=== PATIENT | male | born 1975 | race American Indian/Alaskan Native ===

== ENCOUNTER 2019-05-09 16:12 | Emergency (ER) | payer SELFPAY ==
--- NOTE | 2019-05-09 16:25 | Emergency Department Report ---
Blank Doc - Documentation Documentation: 43-year-old male that presents with chest pain and SOB. This initial assessment/diagnostic orders/clinical plan/treatment(s) is/are subject to change based on patient's health status, clinical progression and re- assessment by fellow clinical providers in the ED. Further treatment and workup at subsequent clinical providers discretion. Patient/guardians urged not to elope from the ED as their condition may be serious if not clinically assessed and managed. Initial orders include: 1- Patient sent to [facility] for further evaluation and treatment 2- labs 3- EKG 4- CXR
[2019-05-09 16:53] LABS: Hematocrit 50.5 % (35.5-45.6); Hemoglobin 16.9 gm/dl (11.8-15.2); Mean Corpuscular HGB Conc 34 % (32-34); Mean Corpuscular Volume 99 fl (84-94); Platelet Count 225 K/mm3 (140-440); Red Blood Count 5.12 M/mm3 (3.65-5.03); Red Cell Distribution Width 13.5 % (13.2-15.2)
[2019-05-09 17:02] LABS: INR 0.95 (0.87-1.13); Partial Thromboplastin Time 26.5 Sec. (24.2-36.6)
--- NOTE | 2019-05-09 17:09 | XRay Report ---
CHEST PA AND LATERAL VIEWS INDICATION: Chest Pain. COMPARISON: None. FINDINGS: Support devices: None. Heart: Within normal limits. Lungs/Pleura: No acute pulmonary or pleural findings. There is mild scarring in the mid right lung. IMPRESSION: 1. No acute findings. Signer Name: Joseph Shirley MD Signed: 05/09/2019 5:05 PM Workstation Name: [id number]
[2019-05-09 17:17] LABS: BUN/Creatinine Ratio 12; Blood Urea Nitrogen 14 mg/dL (9-20); Calcium 9.4 mg/dL (8.4-10.2); Hemolysis Index 36
[2019-05-09 18:25] LABS: Basophils % (Manual) 0 % (0.0-1.8); Platelet Estimate Consistent w Auto; Poikilocytosis Few; Total Cells Counted 100
[2019-05-09] MEDS ORDERED: TORADOL IV ONE (19:54)
[2019-05-09] MEDS ORDERED: DUONEB *Not for PRN Use IH ONE (19:54)
[2019-05-09] MEDS ORDERED: SOLU-Medrol IV ONE (19:54)
[2019-05-09] MEDS ORDERED: LEVAQUIN PO ONE (22:09)
--- NOTE | 2019-05-09 22:14 | Emergency Department Report ---
- General Chief Complaint: Chest Pain Stated Complaint: CHEST PAIN Time Seen by Provider: 05/09/19 16:24 Source: patient, EMS Mode of arrival: Wheelchair Limitations: No Limitations - History of Present Illness Initial Comments: Patient is a 43-year-old -[place] male with a history of asthma and chronic tobacco abuse presents to the ED with complaint of acute onset persis tent nasal and sinus congestion, cough productive of white phlegm, pleuritic chest pain, sore throat, diffuse body aches and pains with wheezing or shortness of breath for the last 1 week, worse in the last 2 days. Patient denies dizziness, fever, chills, nausea, vomiting, abdominal pain, back pain, neck pain, change in vision, diarrhea or sore throat. Patient states that he has been taking [id number] medication with no relief. MD Complaint: cough, sore throat, rhinorrhea, nasal congestion, sinus pain, other (pleuritic chest wall pain) -: Sudden Severity: severe Severity scale (0 -10): 7 Quality: sharp, aching Consistency: constant Improves With: nothing Worsens With: other (Tobacco smoking) Context: sick contacts Associated Symptoms: denies other symptoms, myalgias, headache, rhinorrhea, nasal congestion, sore throat, cough, chest pain, shortness of breath. denies: fever, chills, diaphoresis, stiff neck, abdominal pain, nausea, vomiting, diarrhea, dysuria, rash, confusion, right sweats, weight loss, epistaxis, hoarseness Treatments Prior to Arrival: none - Related Data Previous Rx's Medication Instructions Recorded Last Taken Type Albuterol Sulfate [Proventil Hfa] 1 - 2 puff IH Q4H PRN #1 hfa.aer.ad 05/09/19 Unknown Rx Benzonatate [Tessalon Perles] 100 mg PO Q8HR #30 capsule 05/09/19 Unknown Rx Cetirizine HCl [Zyrtec 10mg tab] 10 mg PO DAILY #30 tablet 05/09/19 Unknown Rx Prednisone [predniSONE 10 mg 10 mg PO .TAPER #21 tab.ds.pk 05/09/19 Unknown Rx (6-Day Pack, 21 Tabs)] amLODIPine [Norvasc] 10 mg PO DAILY #30 tab 05/09/19 Unknown Rx levoFLOXacin [Levaquin TAB] 500 mg PO QDAY #10 tablet 05/09/19 Unknown Rx Allergies Allergy/AdvReac Type Severity Reaction Status Date / Time No Known Allergies Allergy Unverified 05/09/19 16:15 ED Review of Systems ROS: Stated complaint: CHEST PAIN Other details as noted in HPI Constitutional: denies: chills, fever Eyes: denies: eye pain, eye discharge, vision change ENT: throat pain, congestion, other. denies: ear pain Respiratory: cough, shortness of breath, wheezing. denies: SOB with exertion, SOB at rest Cardiovascular: denies: chest pain, palpitations Endocrine: no symptoms reported Gastrointestinal: denies: abdominal pain, nausea, vomiting, diarrhea, constipation, hematemesis Genitourinary: denies: urgency, dysuria Musculoskeletal: arthralgia, myalgia. denies: back pain, joint swelling Skin: denies: rash, lesions Neurological: headache. denies: weakness, paresthesias Psychiatric: denies: anxiety, depression Hematological/Lymphatic: denies: easy bleeding, easy bruising ED Past Medical Hx - Past Medical History Previous Medical History?: Yes Hx Asthma: Yes - Surgical History Past Surgical History?: No - Social History Smoking Status: Current Every Day Smoker Substance Use Type: Alcohol - Medications Home Medications: Home Medications Medication Instructions Recorded Confirmed Last Taken Type Albuterol Sulfate [Proventil Hfa] 1 - 2 puff IH Q4H PRN #1 hfa.aer.ad 05/09/19 Unknown Rx Benzonatate [Tessalon Perles] 100 mg PO Q8HR #30 capsule 05/09/19 Unknown Rx Cetirizine HCl [Zyrtec 10mg tab] 10 mg PO DAILY #30 tablet 05/09/19 Unknown Rx Prednisone [predniSONE 10 mg 10 mg PO .TAPER #21 tab.ds.pk 05/09/19 Unknown Rx (6-Day Pack, 21 Tabs)] amLODIPine [Norvasc] 10 mg PO DAILY #30 tab 05/09/19 Unknown Rx levoFLOXacin [Levaquin TAB] 500 mg PO QDAY #10 tablet 05/09/19 Unknown Rx ED Physical Exam - General Limitations: No Limitations General appearance: alert, in no apparent distress - Head Head exam: Present: atraumatic, normocephalic, normal inspection - Eye Eye exam: Present: normal appearance, PERRL, EOMI. Absent: scleral icterus, conjunctival injection, nystagmus, periorbital swelling, periorbital tenderness Pupils: Present: normal accommodation - ENT ENT exam: Present: normal orophraynx, mucous membranes moist, TM's normal bilaterally, normal external ear exam, other (grossly congested nasal passages; palpable frontal sinus tenderness) - Neck Neck exam: Present: normal inspection, full ROM. Absent: tenderness, meningismus, lymphadenopathy - Respiratory Respiratory exam: Present: normal lung sounds bilaterally, wheezes (mildly diffuse coarse wheezes throughout), chest wall tenderness. Absent: respiratory distress, rales, rhonchi, accessory muscle use, decreased breath sounds, prolonged expiratory - Cardiovascular Cardiovascular Exam: Present: normal rhythm, tachycardia, normal heart sounds. Absent: systolic murmur, diastolic murmur, rubs, gallop - GI/Abdominal GI/Abdominal exam: Present: soft, normal bowel sounds. Absent: tenderness, guarding, rebound, hyperactive bowel sounds, organomegaly, mass - Rectal Rectal exam: Present: deferred - Extremities Exam Extremities exam: Present: normal inspection, full ROM, normal capillary refill - Back Exam Back exam: Present: normal inspection, full ROM. Absent: tenderness, CVA tenderness (R), CVA tenderness (L), muscle spasm, paraspinal tenderness - Neurological Exam Neurological exam: Present: alert, oriented X3, CN II-XII intact, normal gait, reflexes normal - Psychiatric Psychiatric exam: Present: normal affect, normal mood - Skin Skin exam: Present: warm, dry, intact, normal color. Absent: rash ED Course Vital Signs 05/09/19 16:25 Temperature 98.6 F Pulse Rate 108 H Respiratory 20 Rate Blood Pressure 184/126 Blood Pressure 184/126 [Right] O2 Sat by Pulse 100 Oximetry - Reevaluation(s) Reevaluation #1: 05/09/19 22:19 This 43-year-old -[place] male with a history of asthma and chronic tobacco abuse presented to the ED complained of nasal and sinus congestion, dry cough with wheezing and shortness of breath and pleuritic chest pain for the last 1 week, worse in the last 2 days. In the ED, patient is alert and oriented 3, hypertensive, tachycardic and afebrile with audible wheezes. Chest x-ray shows no acute cardiopulmonary abnormalities. EKG shows sinus tachycardia with a ventricular rate of [address] or T-wave abnormalities or pathological Q waves. Lab test results were reviewed and are all nonactionable including the initial troponin and 2 hour troponin levels. Patient was treated in the ED with DuoNeb, Solu-Medrol and also given pain medications. On reevaluation, patient vital signs improved significantly and tachycardia resolved. Patient's wheezing also resolved and patient stated that he was feeling much better. Patient was discharged home on medications and was referred to [facility] for further evaluation and to establish care. Patient was advised to return to the ED immediately if symptoms get worse. ED Medical Decision Making - Lab Data Result diagrams: 05/09/19 16:36 05/09/19 16:36 - EKG Data EKG shows normal: sinus rhythm Rate: tachycardia - Radiology Data Radiology results: report reviewed, image reviewed Chest x-ray shows no acute cardiopulmonary abnormalities. - Medical Decision Making This 43-year-old -[place] male with a history of asthma and chronic tobacco abuse presented to the ED complained of nasal and sinus congestion, dry cough with wheezing and shortness of breath and pleuritic chest pain for the last 1 week, worse in the last 2 days. In the ED, patient is alert and oriented 3, hypertensive, tachycardic and afebrile with audible wheezes. Chest x-ray shows no acute cardiopulmonary abnormalities. EKG shows sinus tachycardia with a ventricular rate of [address] or T-wave abnormalities or pathological Q waves. Lab test results were reviewed and are all nonactionable including the initial troponin and 2 hour troponin levels. Patient was treated in the ED with DuoNeb, Solu-Medrol and also given pain medications. On reevaluation, patient vital signs improved significantly and tachycardia resolved. Patient's wheezing also resolved and patient stated that he was feeling much better. Patient was discharged home on medications and was referred to [facility] for further evaluation and to establish care. Patient was advised to return to the ED immediately if symptoms get worse. - Differential Diagnosis Pneumonia; dyspnea, ACS; Acute URI; acute asthmatic bronchitis Critical care attestation.: If time is entered above; I have spent that time in minutes in the direct care of this critically ill patient, excluding procedure time. ED Disposition Clinical Impression: Acute asthmatic bronchitis, Acute upper respiratory infection, Shortness of breath, Uncontrolled stage 2 hypertension Disposition: DC-01 TO HOME OR SELFCARE Is pt being admited?: No Does the pt Need Aspirin: No Condition: Stable Instructions: Acute Bronchitis (ED), Asthma (ED), Upper Respiratory Infection (ED), Hypertension (ED) Additional Instructions: Take medications with food, drink plenty of fluids and follow up with your primary care physician at [facility] in 7-10 days for reevaluation. Return to the ED immediately if symptoms get worse. Prescriptions: levoFLOXacin [Levaquin TAB] 500 mg PO QDAY #10 tablet amLODIPine [Norvasc] 10 mg PO DAILY #30 tab Prednisone [predniSONE 10 mg (6-Day Pack, 21 Tabs)] 10 mg PO .TAPER #21 tab.ds.pk Albuterol Sulfate [Proventil Hfa] 1 - 2 puff IH Q4H PRN #1 hfa.aer.ad PRN Reason: Dyspnea Benzonatate [Tessalon Perles] 100 mg PO Q8HR #30 capsule Cetirizine HCl [Zyrtec 10mg tab] 10 mg PO DAILY #30 tablet Referrals: [facility] [Outside] - 3-5 Days Time of Disposition: 22:30 Print Language: LUXEMBOURGISH
[2019-05-09 22:31] VITALS: BP 163/103
== END 2019-05-09 22:44 | disposition home or self-care (01) ==
LOC: ED 16:12
DX: J45.909 Unspecified asthma, uncomplicated (principal); J06.9 Acute upper respiratory infection, unspecified; I10 Essential (primary) hypertension; F17.200 Nicotine dependence, unspecified, uncomplicated; Z79.899 Other long term (current) drug therapy
CPT/HCPCS: 36415; 71046; 80048; 84484; 85007; 85025; 85610; 85730; 93005; 93010; 96374; 96375; 99285; J1885; J2930

== ENCOUNTER 2021-07-24 19:28 | Emergency (ER) | payer SELFPAY ==
[2021-07-24] MEDS ORDERED: PANTOPRAZOLE 40 MG TAB PO ONE (20:00)
[2021-07-24] MEDS ORDERED: ACETAMINOPHEN 325 MG TAB PO ONE (20:00)
--- NOTE | 2021-07-24 20:00 | Emergency Department Report ---
ED General Adult HPI - General Chief complaint: Chest Pain Stated complaint: CHEST PAIN PUI?: No Time Seen by Provider: 07/24/21 19:49 Source: patient, RN notes reviewed, old records reviewed Mode of arrival: Ambulatory Limitations: No Limitations - History of Present Illness Initial comments: The patient is a 46-year-old gentleman. He is not known to myself previously. He has a history of hypertension, tobacco use, and obesity. He presents to the ER with a complaint of chest pain. The chest pain is central. It does not radiate to the back arms or neck. There is no vomiting or diaphoresis. There is no shortness of breath. There is no leg pain or leg swelling. Patient denies travel, surgery, immobilization, DVT/PE risk factors. He denies Covid symptoms. He currently denies headache, neck pain, abdominal pain, vomiting, diaphoresis. He reports a rectal hemorrhoid, and intermittent bloody stool. This is now resolved. He denies urinary symptoms. Uncertain if there is a family history of CAD. No recent cardiac risk ratification for this particular patient himself. -: Gradual Location: chest Radiation: non-radiation Severity scale (0 -10): 3 Consistency: intermittent Improves with: none Worsens with: none - Related Data Previous Rx's Medication Instructions Recorded Last Taken Type Albuterol Sulfate [Proventil Hfa] 1 - 2 puff IH Q4H PRN #1 hfa.aer.ad 05/09/19 Unknown Rx amLODIPine 10 mg PO DAILY #30 tab 05/09/19 Unknown Rx Aspirin 325 mg PO QDAY #30 tablet 07/24/21 Unknown Rx amLODIPine 10 mg PO DAILY #30 tab 07/24/21 Unknown Rx Allergies Allergy/AdvReac Type Severity Reaction Status Date / Time No Known Allergies Allergy Unverified 05/09/19 16:15 ED Review of Systems ROS: Stated complaint: CHEST PAIN Other details as noted in HPI Constitutional: denies: fever Eyes: denies: eye discharge ENT: denies: epistaxis Respiratory: denies: wheezing Cardiovascular: chest pain Gastrointestinal: hematochezia. denies: abdominal pain, nausea, vomiting, melena Genitourinary: denies: dysuria Musculoskeletal: denies: back pain Neurological: denies: weakness Hematological/Lymphatic: denies: easy bleeding ED Past Medical Hx - Past Medical History Hx Asthma: Yes - Social History Smoking Status: Current Every Day Smoker Substance Use Type: Alcohol - Medications Home Medications: Home Medications Medication Instructions Recorded Confirmed Last Taken Type Albuterol Sulfate [Proventil Hfa] 1 - 2 puff IH Q4H PRN #1 hfa.aer.ad 05/09/19 Unknown Rx amLODIPine 10 mg PO DAILY #30 tab 05/09/19 Unknown Rx Aspirin 325 mg PO QDAY #30 tablet 07/24/21 Unknown Rx amLODIPine 10 mg PO DAILY #30 tab 07/24/21 Unknown Rx ED Physical Exam - General Limitations: No Limitations General appearance: alert, in no apparent distress - Head Head exam: Present: atraumatic, normocephalic - Eye Eye exam: Present: normal appearance, EOMI. Absent: nystagmus - ENT ENT exam: Present: normal exam, normal orophraynx, mucous membranes moist - Neck Neck exam: Present: normal inspection, full ROM. Absent: tenderness, menin gismus - Respiratory Respiratory exam: Present: normal lung sounds bilaterally, chest wall tenderness. Absent: respiratory distress, wheezes, rales, rhonchi, stridor - Cardiovascular Cardiovascular Exam: Present: regular rate, normal rhythm, normal heart sounds. Absent: bradycardia, tachycardia, irregular rhythm, systolic murmur, diastolic murmur, rubs, gallop - GI/Abdominal GI/Abdominal exam: Present: soft. Absent: distended, tenderness, guarding, rebound, rigid, pulsatile mass - Rectal Rectal exam: Present: normal inspection, heme (-) stool, hemorrhoids, other (Chaperoned by Apurva Chandler). Absent: black stool, bloody stool - Extremities Exam Extremities exam: Present: normal inspection, full ROM, other (2+ pulses noted in the bilateral upper and lower extremities. There is no palpable cord. negative Homans sign. Muscular compartments are soft. The pelvis is stable.). Absent: pedal edema, calf tenderness - Back Exam Back exam: Present: normal inspection, full ROM. Absent: tenderness, CVA tenderness (R), CVA tenderness (L), paraspinal tenderness, vertebral tenderness - Neurological Exam Neurological exam: Present: alert, oriented X3, normal gait, other (No facial droop. Tongue midline. Extraocular movements intact bilaterally. Facial sensation intact to light touch in V1, V2, V3 distribution bilaterally. 5 and a 5 strength in 4 extremities. Sensation intact to light touch in 4 extremities.). Absent: motor sensory deficit - Psychiatric Psychiatric exam: Present: normal affect, normal mood - Skin Skin exam: Present: warm, dry, intact, normal color. Absent: rash ED Course Vital Signs 07/24/21 07/24/21 07/24/21 19:36 20:45 21:01 Temperature 98.1 F Pulse Rate 97 H 92 H 94 H Respiratory 20 14 22 Rate Blood Pressure 186/96 186/96 Blood Pressure 180/112 [Right] O2 Sat by Pulse 97 98 98 Oximetry 07/24/21 21:15 Temperature Pulse Rate 83 Respiratory 17 Rate Blood Pressure 186/96 Blood Pressure [Right] O2 Sat by Pulse 98 Oximetry - Pulse Oximetry Interpretation Digit-Finger Initial Pulse Oximetry Readin O2 Sat by Pulse Oximetry: 98 Actions Taken: none ED Medical Decision Making - Lab Data Result diagrams: 07/24/21 Unknown 07/24/21 Unknown Vital Signs 07/24/21 07/24/21 07/24/21 19:36 20:45 21:01 Temperature 98.1 F Pulse Rate 97 H 92 H 94 H Respiratory 20 14 22 Rate Blood Pressure 186/96 186/96 Blood Pressure 180/112 [Right] O2 Sat by Pulse 97 98 98 Oximetry 07/24/21 21:15 Temperature Pulse Rate 83 Respiratory 17 Rate Blood Pressure 186/96 Blood Pressure [Right] O2 Sat by Pulse 98 Oximetry Lab Results 07/24/21 07/24/21 07/24/21 Range/Units Unknown Unknown Unknown WBC 5.6 (4.5-11.0) K/mm3 RBC 4.90 (3.65-5.03) M/mm3 Hgb 15.7 H (11.8-15.2) gm/dl Hct 48.5 H (35.5-45.6) % MCV 99 H (84-94) fl MCH 32 (28-32) pg MCHC 32 (32-34) % RDW 13.7 (13.2-15.2) % Plt Count 239 (140-440) K/mm3 Lymph % (Auto) 26.6 (13.4-35.0) % [place] % (Auto) 11.4 H (0.0-7.3) % Eos % (Auto) 2.1 (0.0-4.3) % Baso % (Auto) 0.7 (0.0-1.8) % Lymph # (Auto) 1.5 (1.2-5.4) K/mm3 [place] # (Auto) 0.6 (0.0-0.8) K/mm3 Eos # (Auto) 0.1 (0.0-0.4) K/mm3 Baso # (Auto) 0.0 (0.0-0.1) K/mm3 Seg Neutrophils % 59.2 (40.0-70.0) % Seg Neutrophils # 3.3 (1.8-7.7) K/mm3 PT 12.6 (12.2-14.9) Sec. INR 0.85 L (0.87-1.13) APTT 28.0 (24.2-36.6) Sec. Sodium 142 (137-145) mmol/L Potassium 4.1 (3.6-5.0) mmol/L Chloride 102.2 (98-107) mmol/L Carbon Dioxide 27 (22-30) mmol/L Anion Gap 17 mmol/L BUN 11 (9-20) mg/dL Creatinine 0.9 (0.8-1.3) mg/dL Estimated GFR > 60 ml/min BUN/Creatinine Ratio 12 % Glucose 134 H (75-100) mg/dL Calcium 8.9 (8.4-10.2) mg/dL Total Bilirubin 0.30 (0.1-1.2) mg/dL AST 28 (5-40) units/L ALT 41 (7-56) units/L Alkaline Phosphatase 90 (35-129) units/L Troponin T < 0.010 (0.00-0.029) ng/mL Total Protein 7.6 (6.3-8.2) g/dL Albumin 4.1 (3.9-5) g/dL Albumin/Globulin Ratio 1.2 % - EKG Data -: EKG Interpreted by Pa EKG shows normal: sinus rhythm Rate: normal - EKG Data 07/24/21 22:04 EKG #1 is performed at 19: 33 Sinus rhythm, 93 bpm. Normal axis, normal P wave axis. Poor R wave progression. Left ventricular hypertrophy. Numerous T wave abnormalities inferior and lateral leads. When compared to prior EKG, T wave inversions in the lateral leads are new. Poor R wave progression in V2 is chronic. ST abnormalities inferior leads appear to be chronic, although more pronounced than when compared to prior EKG. - Radiology Data Radiology results: pending, report reviewed, image reviewed CHEST 2 VIEWS INDICATION / CLINICAL INFORMATION: Chest Pain. FINDINGS: SUPPORT DEVICES: None. HEART / MEDIASTINUM: No significant abnormality. LUNGS / PLEURA: No significant pulmonary or pleural abnormality. No pneumothorax. ADDITIONAL FINDINGS: No significant additional findings. IMPRESSION: 1. No acute findings. Signer Name: Pankaj Terry MD Signed: 07/24/2021 7:36 PM Workstation Name: [id number] - Medical Decision Making Differential diagnosis, including but not limited to: GERD, gastritis, hiatal hernia, pneumonia, costochondritis, acute coronary syndrome Assessment and plan: 46-year-old gentleman, who was afebrile, with reassuring vital signs with exception of chronic hypertension, who is not currently tachycardic, tachypneic or hypoxic, who denies DVT and PE risk factors, who is low risk by Wells criteria, and PERC negative, presenting with atypical reproducible chest wall pain, abnormal EKG with nonspecific changes, likely related to left ventricular hypertrophy, moderate risk for major adverse cardiac event as per heart score. Rectal examination shows no blood, only external hemorrhoid. Laboratory studies nonactionable. Patient presents as awake, alert, oriented, sober, of sound mind, exhibits decision-making capacity. Have recommended admission to the medical service for cardiac risk ratification. The patient is agreeable to admission, but he states that he lives in an apartment "with other people", reports that he needs to leave to hide and secure valuables, and make appropriate arrangements. He states that he will return to the emergency room right away. Therefore, he will be discharged AGAINST MEDICAL ADVICE. Risks of leaving, including , disability, paralysis, loss of quality of life are discussed with the patient, who is able to articulate these risks in his own words, and articulates understanding. However, he endorses that he will return to the emergency room right away. Critical care attestation.: If time is entered above; I have spent that time in minutes in the direct care of this critically ill patient, excluding procedure time. ED Disposition Clinical Impression: Acute chest pain, Elevated blood pressure reading Disposition: LEFT AGAINST MEDICAL ADVICE Is pt being admited?: No Does the pt Need Aspirin: No Condition: Undetermined Instructions: Chest Pain (ED), Hypertension, Adult, [id number], Angina Additional Instructions: As we discussed, you have left the hospital/emergency room AGAINST MEDICAL ADVICE. By leaving, you risked , disability, paralysis, permanent loss of quality of life. The ER is open 24 hours a day, 7 days a week. It never closes. Please return to the emergency room right away if and when you change your mind. If you decide not to return to the emergency room, please follow-up with the listed physician referrals as soon as possible. Referrals: PRIMARY CARE, [Primary Care Provider] - 3-5 Days [facility] [Provider Group] - 3-5 Days [facility] - 3-5 Days [facility] [Provider Group] - 3-5 Days Heart Score - HEART Score History: Slightly suspicious EKG: Non-specific Age: 45-65 Risk factors: > 3 risk factors or hx of atherosclerotic disease Troponin: < normal limit HEART Score: 4 - EKG Read Time Time EKG Completed: 19:33 EKG Read Time: 19:33 - Critical Actions Critical Actions: 4-6 pts:12-16.6% risk of adverse cardiac event. Should be admitted
--- NOTE | 2021-07-24 20:40 | XRay Report ---
CHEST 2 VIEWS INDICATION / CLINICAL INFORMATION: Chest Pain. FINDINGS: SUPPORT DEVICES: None. HEART / MEDIASTINUM: No significant abnormality. LUNGS / PLEURA: No significant pulmonary or pleural abnormality. No pneumothorax. ADDITIONAL FINDINGS: No significant additional findings. IMPRESSION: 1. No acute findings. Signer Name: Pankaj Terry MD Signed: 07/24/2021 8:36 PM Workstation Name: [id number]
[2021-07-24 20:44] LABS: Basophils % (Auto) 0.7 % (0.0-1.8); Eosinophils # (Auto) 0.1 K/mm3 (0.0-0.4); Eosinophils % (Auto) 2.1 % (0.0-4.3); Hematocrit 48.5 % (35.5-45.6); Hemoglobin 15.7 gm/dl (11.8-15.2); Lymphocytes # (Auto) 1.5 K/mm3 (1.2-5.4); Lymphocytes % (Auto) 26.6 % (13.4-35.0); Mean Corpuscular HGB Conc 32 % (32-34); Mean Corpuscular Volume 99 fl (84-94); Monocytes # (Auto) 0.6 K/mm3 (0.0-0.8); Monocytes % (Auto) 11.4 % (0.0-7.3); Platelet Count 239 K/mm3 (140-440); Red Cell Distribution Width 13.7 % (13.2-15.2)
[2021-07-24 21:01] VITALS: BP 186/96
[2021-07-24 21:08] LABS: Alanine Aminotransferase 41 units/L (7-56); Albumin 4.1 g/dL (3.9-5); BUN/Creatinine Ratio 12; Blood Urea Nitrogen 11 mg/dL (9-20); Calcium 8.9 mg/dL (8.4-10.2); Hemolysis Index 11
[2021-07-24 21:15] LABS: INR 0.85 (0.87-1.13)
[2021-07-24] MEDS ORDERED: ASPIRIN 81 MG TAB CHEW PO ONE (22:01)
[2021-07-24] MEDS ORDERED: amLODIPine 5 MG TAB PO ONE (22:01)
[2021-07-25] MEDS ORDERED: MORPHINE 2 MG/1 ML INJ IV PRN (02:37)
[2021-07-25] MEDS ORDERED: ONDANSETRON 4 MG/2 ML INJ IV PRN (02:37)
[2021-07-25] MEDS ORDERED: MORPHINE 4 MG/1 ML INJ IV PRN ×2 (02:37)
[2021-07-25] MEDS ORDERED: traMADol 50 MG TAB PO PRN (02:37)
[2021-07-25] MEDS ORDERED: NITROGLYCERIN 0.4 MG TAB SUBL SL PRN (02:37)
[2021-07-25] MEDS ORDERED: MAGNESIUM HYDROXIDE (MOM) ORAL LIQD UDC PO PRN (02:37)
[2021-07-25] MEDS ORDERED: ACETAMINOPHEN 325 MG TAB PO PRN (02:37)
[2021-07-25 04:03] LABS: Basophils % (Auto) 0.6 % (0.0-1.8); Eosinophils # (Auto) 0.1 K/mm3 (0.0-0.4); Hematocrit 49.7 % (35.5-45.6); Hemoglobin 16.1 gm/dl (11.8-15.2); Lymphocytes # (Auto) 2.3 K/mm3 (1.2-5.4); Lymphocytes % (Auto) 33.2 % (13.4-35.0); Mean Corpuscular HGB Conc 32 % (32-34); Mean Corpuscular Volume 101 fl (84-94); Monocytes # (Auto) 0.9 K/mm3 (0.0-0.8); Monocytes % (Auto) 13.6 % (0.0-7.3); Platelet Count 250 K/mm3 (140-440); Red Blood Count 4.94 M/mm3 (3.65-5.03); Red Cell Distribution Width 13.6 % (13.2-15.2)
[2021-07-25 04:54] LABS: BUN/Creatinine Ratio 15; Blood Urea Nitrogen 15 mg/dL (9-20); Calcium 9.4 mg/dL (8.4-10.2); Hemolysis Index 7
[2021-07-26] MEDS ORDERED: ASPIRIN EC 325 MG TAB PO SCH (10:00)
== END 2021-07-24 22:20 | disposition left against medical advice (07) ==
LOC: ED 19:28
DX: R07.9 Chest pain, unspecified (principal); R03.0 Elevated blood-pressure reading, without diagnosis of hypertension; I10 Essential (primary) hypertension; E66.9 Obesity, unspecified; J45.909 Unspecified asthma, uncomplicated; F17.200 Nicotine dependence, unspecified, uncomplicated
CPT/HCPCS: 36415; 71046; 80048; 80053; 84484; 85025; 85610; 85730; 93005; 99284

== ENCOUNTER 2021-07-25 00:47 | Inpatient (IN) | payer SELFPAY ==
--- NOTE | 2021-07-25 02:34 | Emergency Department Report ---
ED Chest Pain HPI - General Chief Complaint: Chest Pain Stated Complaint: CHEST PAIN Time Seen by Provider: 07/25/21 02:19 Source: patient Mode of arrival: Ambulatory Limitations: No Limitations - History of Present Illness Initial Comments: 46-year-old male, history of asthma, hypertension, presents to ED for admission for chest pain. Patient was seen earlier this evening by my colleague who wanted to admit the patient. Patient reported he needed to go home and take care of some things prior to staying in the hospital overnight. Patient reports he has been having substernal chest pain, intermittent, over the last few weeks. Patient reports some shortness of breath, but believes this is due to his asthma. He denies any nausea, vomiting, diaphoresis, leg pain or swelling, cough or fever. Patient reports tobacco use, denies any drug use. Unknown family history of cardiovascular disease. MD Complaint: chest pain -: week(s) (3) Pain Location: substernal Pain Radiation: none Severity: moderate Severity scale (0 -10): 0 Quality: tightness Consistency: intermittent Improves With: nothing Worsens With: nothing re: dyspnea. denies: nausea, vomting, diaphoresis Other Symptoms: denies: cough, fever, leg swelling - Related Data Previous Rx's Medication Instructions Recorded Last Taken Type Albuterol Sulfate [Proventil Hfa] 1 - 2 puff IH Q4H PRN #1 hfa.aer.ad 05/09/19 Unknown Rx amLODIPine 10 mg PO DAILY #30 tab 05/09/19 Unknown Rx Aspirin 325 mg PO QDAY #30 tablet 07/24/21 Unknown Rx amLODIPine 10 mg PO DAILY #30 tab 07/24/21 Unknown Rx Allergies Allergy/AdvReac Type Severity Reaction Status Date / Time No Known Allergies Allergy Unverified 05/09/19 16:15 Heart Score - HEART Score History: Slightly suspicious EKG: Non-specific Age: 45-65 Risk factors: > 3 risk factors or hx of atherosclerotic disease Troponin: < normal limit HEART Score: 4 - EKG Read Time Time EKG Completed: 02:14 EKG Read Time: 02:25 ED Review of Systems ROS: Stated complaint: CHEST PAIN Other details as noted in HPI Comment: All other systems reviewed and negative Respiratory: shortness of breath Cardiovascular: chest pain Gastrointestinal: denies: nausea, vomiting Musculoskeletal: other (Denies leg pain or swelling) ED Past Medical Hx - Past Medical History Hx Asthma: Yes - Social History Smoking Status: Current Every Day Smoker Substance Use Type: Alcohol - Medications Home Medications: Home Medications Medication Instructions Recorded Confirmed Last Taken Type Albuterol Sulfate [Proventil Hfa] 1 - 2 puff IH Q4H PRN #1 hfa.aer.ad 05/09/19 Unknown Rx amLODIPine 10 mg PO DAILY #30 tab 05/09/19 Unknown Rx Aspirin 325 mg PO QDAY #30 tablet 07/24/21 Unknown Rx amLODIPine 10 mg PO DAILY #30 tab 07/24/21 Unknown Rx ED Physical Exam - General Limitations: No Limitations General appearance: alert, in no apparent distress, obese - Head Head exam: Present: atraumatic, normocephalic - Eye Eye exam: Present: normal appearance, EOMI - ENT ENT exam: Present: mucous membranes moist - Neck Neck exam: Present: normal inspection - Respiratory Respiratory exam: Present: normal lung sounds bilaterally. Absent: respiratory distress - Cardiovascular Cardiovascular Exam: Present: regular rate, normal rhythm - GI/Abdominal GI/Abdominal exam: Present: soft. Absent: distended, tenderness - Extremities Exam Extremities exam: Present: normal inspection. Absent: pedal edema, calf tenderness - Neurological Exam Neurological exam: Present: alert, oriented X3 - Psychiatric Psychiatric exam: Present: normal affect, normal mood - Skin Skin exam: Present: warm, dry, intact, normal color ED Course Vital Signs 07/25/21 07/25/21 07/25/21 01:05 01:56 02:43 Temperature 98.2 F Pulse Rate 89 94 H Respiratory 20 18 17 Rate Blood Pressure 191/107 170/96 [Right] O2 Sat by Pulse 99 99 98 Oximetry ED Medical Decision Making - EKG Data -: EKG Interpreted by Mi EKG shows normal: sinus rhythm, axis, intervals, QRS complexes Rate: normal - EKG Data Interpretation: other (Lateral T wave inversions present) Critical care attestation.: If time is entered above; I have spent that time in minutes in the direct care of this critically ill patient, excluding procedure time. ED Disposition Clinical Impression: Acute chest pain, Uncontrolled hypertension Disposition: ADMITTED INPATIENT Is pt being admited?: Yes Condition: Stable Instructions: Chest Pain (ED), Hypertension (ED) Time of Disposition: 02:44
[2021-07-25] MEDS ORDERED: ASPIRIN 325 MG TAB PO ONE (02:39)
--- NOTE | 2021-07-25 02:51 | History and Physical Report ---
History of Present Illness Date of examination: 07/25/21 Date of admission: 07/25/2021 Chief complaint: Chest Pain History of present illness: 46-year-old male with known history of asthma, hypertension, obesity and a long history of tobacco abuse presenting to the emergency room today complaining of chest pain. Chest pain was said to be substernal which has been intermittent and has been ongoing for the past few weeks. Pain started when he was at work and was doing some lifting at work. No known relieving factors. He denies any nausea vomiting, no abdominal pain, no headache or dizziness and no diaphoresis. Patient denies any fever or chills. Upon arrival arrival in the emergency room, blood pressure was elevated with systolic in the 180s. Work-up in the emergency room today including EKG and troponin has been negative. Patient is being admitted for chest pain evaluation. Past History Past Medical History: hypertension, other (Asthma,Obesity) Past Surgical History: No surgical history Social history: smoking (Current daily smoker), alcohol abuse Family history: CAD, diabetes (Mother had diabetes mellitus), hypertension (Hypertension also runs in the family) Medications and Allergies Allergies Allergy/AdvReac Type Severity Reaction Status Date / Time No Known Allergies Allergy Unverified 05/09/19 16:15 Home Medications Medication Instructions Recorded Confirmed Last Taken Type Albuterol Sulfate [Proventil Hfa] 1 - 2 puff IH Q4H PRN #1 hfa.aer.ad 05/09/19 Unknown Rx amLODIPine 10 mg PO DAILY #30 tab 05/09/19 Unknown Rx Aspirin 325 mg PO QDAY #30 tablet 07/24/21 Unknown Rx amLODIPine 10 mg PO DAILY #30 tab 07/24/21 Unknown Rx Review of Systems Constitutional: no fever, no chills Ears, nose, mouth and throat: no nasal congestion, no sore throat Cardiovascular: chest pain, no palpitations Respiratory: no cough, no shortness of breath Gastrointestinal: no abdominal pain, no nausea, no vomiting, no diarrhea Genitourinary Male: no dysuria, no hematuria, no flank pain, no nocturia Musculoskeletal: no neck pain, no low back pain Integumentary: no rash, no pruritis Neurological: no headaches, no confusion Psychiatric: no anxiety, no depression Endocrine: no polyphagia, no polydipsia, no polyuria, no nocturia Exam - Constitutional Vitals: Temp Pulse Resp BP Pulse Ox 98.2 F 94 H 17 170/96 98 07/25/21 01:05 07/25/21 02:43 07/25/21 02:43 07/25/21 02:43 07/25/21 02:43 General appearance: Present: no acute distress, well-nourished, obese - EENT Eyes: Present: PERRL, EOM intact. Absent: scleral icterus ENT: hearing intact, clear oral mucosa, dentition normal - Neck Neck: Present: supple, normal ROM - Respiratory Respiratory effort: normal Respiratory: bilateral: CTA - Cardiovascular Rhythm: regular Heart Sounds: Present: S1 & S2. Absent: gallop, systolic murmur, diastolic murmur, rub, click - Extremities Extremities: no ischemia, pulses intact, pulses symmetrical, No edema, normal temperature, normal color, Full ROM Peripheral Pulses: within normal limits - Abdominal General gastrointestinal: Present: soft, non-tender, non-distended, normal bowel sounds. Absent: mass - Integumentary Integumentary: Present: clear, warm, dry. Absent: rash - Musculoskeletal Musculoskeletal: strength equal bilaterally - Psychiatric Psychiatric: appropriate mood/affect, intact judgment & insight, memory intact, cooperative - Neurologic Neurologic: CNII-XII intact, no focal deficits, moves all extremities HEART Score - HEART Score History: Slightly suspicious EKG: Non-specific Age: 45-65 Risk factors: > 3 risk factors or hx of atherosclerotic disease Troponin: < normal limit HEART Score: 4 Assessment and Plan - Patient Problems (1) Acute chest pain Current Visit: Yes Status: Acute Plan to address problem: Patient admitted and placed on telemetry We will check serial cardiac enzymes. Patient placed on aspirin, sublingual nitroglycerin and IV morphine as needed for chest pain. Consult placed to cardiology for evaluation. (2) Hypertension Current Visit: Yes Status: Acute Plan to address problem: Patient placed on IV hydralazine as needed for blood pressure. We will monitor vital signs closely. (3) Morbid obesity with BMI of 70 and over, adult Current Visit: Yes Status: Acute Plan to address problem: Dietary consult requested for evaluation. Lifestyle modification encouraged. (4) DVT prophylaxis Current Visit: Yes Status: Acute Plan to address problem: Patient placed on subcutaneous heparin. (5) Full code status Current Visit: Yes Status: Acute Plan to address problem: Patient is full code.
[2021-07-25] MEDS: hydrALAZINE 20 MG/1 ML INJ IV PRN ×3 (08:03→17:58)
[2021-07-25] MEDS ORDERED: ACETAMINOPHEN 325 MG TAB PO PRN (09:31)
[2021-07-25] MEDS ORDERED: traMADol 50 MG TAB PO PRN (09:31)
[2021-07-25] MEDS ORDERED: NITROGLYCERIN 0.4 MG TAB SUBL SL PRN (09:31)
[2021-07-25] MEDS ORDERED: ALBUTEROL 2.5 MG/3 ML NEBU IH PRN (09:36)
--- NOTE | 2021-07-25 09:36 | Event Note ---
Date: 07/25/21 Patient presents with chest pain. No chest pain currently. I have seen and examined him. Aspirin, nitrates. Stress test in am.
[2021-07-25] MEDS ORDERED: MORPHINE 2 MG/1 ML INJ IV PRN (09:48)
[2021-07-25] MEDS: amLODIPine 10 MG TAB PO SCH (11:05)
[2021-07-25] MEDS: HEPARIN 5,000 UNIT/1 ML VIAL SUB-Q SCH ×2 (13:20→21:05)
[2021-07-25 14:03] LABS: Basophils % (Auto) 0.6 % (0.0-1.8); Eosinophils # (Auto) 0.1 K/mm3 (0.0-0.4); Eosinophils % (Auto) 2.4 % (0.0-4.3); Hematocrit 47.9 % (35.5-45.6); Hemoglobin 15.5 gm/dl (11.8-15.2); Lymphocytes # (Auto) 2.3 K/mm3 (1.2-5.4); Lymphocytes % (Auto) 37.1 % (13.4-35.0); Mean Corpuscular HGB Conc 32 % (32-34); Mean Corpuscular Volume 99 fl (84-94); Monocytes # (Auto) 0.8 K/mm3 (0.0-0.8); Monocytes % (Auto) 13.6 % (0.0-7.3); Platelet Count 235 K/mm3 (140-440); Red Blood Count 4.83 M/mm3 (3.65-5.03); Red Cell Distribution Width 13.9 % (13.2-15.2)
[2021-07-25 14:24] LABS: BUN/Creatinine Ratio 16; Blood Urea Nitrogen 13 mg/dL (9-20); Calcium 9.1 mg/dL (8.4-10.2); Hemolysis Index 13
[2021-07-25] MEDS: ASPIRIN 325 MG TAB PO SCH (20:57)
[2021-07-26] MEDS: HEPARIN 5,000 UNIT/1 ML VIAL SUB-Q SCH ×3 (05:02→22:12)
[2021-07-26] MEDS: amLODIPine 10 MG TAB PO SCH (09:47)
[2021-07-26] MEDS: ASPIRIN 325 MG TAB PO SCH (09:47)
[2021-07-26] MEDS ORDERED: REGADENOSON 0.4 MG/5 ML INJ IV ONE (10:45)
--- NOTE | 2021-07-26 10:55 | XRay Report ---
CHEST 2 VIEWS INDICATION / CLINICAL INFORMATION: Recurrent chest pains. COMPARISON: 07/24/2021 FINDINGS: SUPPORT DEVICES: None. HEART / MEDIASTINUM: No significant abnormality. LUNGS / PLEURA: No significant pulmonary or pleural abnormality. No pneumothorax. ADDITIONAL FINDINGS: No significant additional findings. IMPRESSION: 1. No acute findings. Signer Name: John Rendon MD Signed: 07/26/2021 10:50 AM Workstation Name: [id number]
[2021-07-26] MEDS ORDERED: methylPREDNISolone Sod Succinate 125 MG/2 ML INJ IV NR (14:30)
[2021-07-26] MEDS: carvediloL 12.5 MG TAB PO SCH ×2 (15:27→22:13)
--- NOTE | 2021-07-26 18:24 | Progress Note ---
Assessment and Plan Assessment and plan: 46-year-old male with known history of asthma, hypertension, obesity and a long history of tobacco abuse presenting to the emergency room today complaining of chest pain. Chest pain was said to be substernal which has been intermittent and has been ongoing for the past few weeks. It started when he was at work and was doing some lifting at work few weeks ago. No known relieving factors. Patient also reports wheezing and difficulty breathing since couple of weeks and using OTC inhaler from [employer]. He does not see doctors since he has no health insurance. He denies any nausea vomiting, no abdominal pain, no headache or dizziness and no diaphoresis. Patient denies any fever or chills. Upon arrival arrival in the emergency room, blood pressure was elevated with systolic in the 180s. Work-up in the emergency room today including EKG and troponin has been negative. Patient is being admitted for chest pain evaluation. (1) Acute recurrent atypical chest pains Current Visit: Yes Status: Acute Plan to address problem: Intermittent chest pains started after lifting heavy items at work few weeks ago. Nontender to palpation. Patient admitted and placed on telemetry Troponins x3 normal. D-dimer normal. Patient placed on aspirin, sublingual nitroglycerin and IV morphine as needed for chest pain. Consult placed to cardiology for evaluation. Nuclear stress is reported negative for ischemia, however showed LVEF 30% without wall motion abnormalities. No acute process/CHF reported on chest x-ray. BNP 105 Echocardiogram ordered for further evaluation. Hypertensive cardiomyopathy and right heart failure is a concern (2) severe uncontrolled hypertension/noncompliance Current Visit: Yes Status: Acute Plan to address problem: Patient placed on medical therapy and as needed IV hydralazine We will monitor for optimal control (3) asthma exacerbation, ongoing tobacco smoker Patient reports wheezing and dyspnea since weeks. Patient is using only a OTC inhaler from [employer], he does not see doctors since he has no insurance. Placed on nebs and Solu-Medrol. Counseled on quitting tobacco smoking. (4) morbid obesity with BMI of 70 and over, highly suspicious PEEWEE Current Visit: Yes Status: Acute Plan to address problem: Dietary consult requested for evaluation. Lifestyle modification encouraged. He will need a sleep study as the patient (4) DVT prophylaxis Current Visit: Yes Status: Acute Plan to address problem: Patient placed on subcutaneous heparin. (5) Full code status Current Visit: Yes Status: Acute Plan to address problem: Patient is full code. History Interval history: Patient reports breathing better since admitted. No chest pains or palpitations currently. BP better controlled. On nebulizer therapy. Cardiology evaluation in progress. Hospitalist Physical - Constitutional Vitals: Temp Pulse Resp BP Pulse Ox 97.9 F 91 H 18 184/90 98 07/26/21 04:22 07/26/21 15:27 07/26/21 04:22 07/26/21 12:31 07/26/21 10:00 General appearance: Present: no acute distress, well-nourished, obese - EENT Eyes: Present: PERRL, EOM intact ENT: clear oral mucosa - Neck Neck: Present: supple - Respiratory Respiratory effort: normal Respiratory: bilateral: diminished, wheezing - Cardiovascular Rhythm: regular - Extremities Extremities: No edema - Abdominal General gastrointestinal: soft, non-tender, other (Obese) - Integumentary Integumentary: Absent: rash - Psychiatric Psychiatric: appropriate mood/affect - Neurologic Neurologic: no focal deficits, moves all extremities HEART Score - HEART Score EKG: Non-specific Age: 45-65 Risk factors: > 3 risk factors or hx of atherosclerotic disease Troponin: Troponin T < 0.010 ng/mL (0.00-0.029) 07/25/21 15:27 Troponin: < normal limit Results - Labs CBC & Chem 7: 07/25/21 13:27 07/25/21 13:27 Labs: Laboratory Last Values WBC 6.2 K/mm3 (4.5-11.0) 07/25/21 13:27 RBC 4.83 M/mm3 (3.65-5.03) 07/25/21 13:27 Hgb 15.5 gm/dl (11.8-15.2) H 07/25/21 13:27 Hct 47.9 % (35.5-45.6) H 07/25/21 13:27 MCV 99 fl (84-94) H 07/25/21 13:27 MCH 32 pg (28-32) 07/25/21 13:27 MCHC 32 % (32-34) 07/25/21 13:27 RDW 13.9 % (13.2-15.2) 07/25/21 13:27 Plt Count 235 K/mm3 (140-440) 07/25/21 13:27 Lymph % (Auto) 37.1 % (13.4-35.0) H 07/25/21 13:27 [place] % (Auto) 13.6 % (0.0-7.3) H 07/25/21 13:27 Eos % (Auto) 2.4 % (0.0-4.3) 07/25/21 13:27 Baso % (Auto) 0.6 % (0.0-1.8) 07/25/21 13:27 Lymph # (Auto) 2.3 K/mm3 (1.2-5.4) 07/25/21 13:27 [place] # (Auto) 0.8 K/mm3 (0.0-0.8) 07/25/21 13:27 Eos # (Auto) 0.1 K/mm3 (0.0-0.4) 07/25/21 13:27 Baso # (Auto) 0.0 K/mm3 (0.0-0.1) 07/25/21 13:27 Seg Neutrophils % 46.3 % (40.0-70.0) 07/25/21 13:27 Seg Neutrophils # 2.9 K/mm3 (1.8-7.7) 07/25/21 13:27 D-Dimer 201.76 ng/mlDDU (0-234) 07/26/21 10:15 Sodium 139 mmol/L (137-145) 07/25/21 13:27 Potassium 4.2 mmol/L (3.6-5.0) 07/25/21 13:27 Chloride 103.1 mmol/L (98-107) 07/25/21 13:27 Carbon Dioxide 26 mmol/L (22-30) 07/25/21 13:27 Anion Gap 14 mmol/L 07/25/21 13:27 BUN 13 mg/dL (9-20) 07/25/21 13:27 Creatinine 0.8 mg/dL (0.8-1.3) 07/25/21 13:27 Estimated GFR > 60 ml/min 07/25/21 13:27 BUN/Creatinine Ratio 16 % 07/25/21 13:27 Glucose 112 mg/dL (75-100) H 07/25/21 13:27 Calcium 9.1 mg/dL (8.4-10.2) 07/25/21 13:27 Troponin T < 0.010 ng/mL (0.00-0.029) 07/25/21 15:27 NT-Pro-B Natriuret Pep 105.5 pg/mL (0-450) 07/26/21 14:23 [place]/IV: Voiding Method Toilet Active Medications - Current Medications Current Medications: Generic Name Dose Route Start Last Admin Trade Name Freq PRN Reason Stop Dose Admin Acetaminophen 650 mg 07/25/21 09:31 Acetaminophen 325 Mg Tab PO Q6H PRN Pain, Mild (1-3) Albuterol 2.5 mg 07/25/21 09:36 Albuterol 2.5 Mg/3 Ml Nebu IH Q4H PRN Shortness Of Breath Amlodipine Besylate 10 mg 07/25/21 10:00 07/26/21 09:47 Amlodipine 10 Mg Tab PO 10 mg QDAY YUN Administration Aspirin 325 mg 07/25/21 20:00 07/26/21 09:47 Aspirin 325 Mg Tab PO 325 mg QDAY YUN Administration Budesonide 0.25 mg 07/26/21 20:00 Budesonide 0.25 Mg/2 Ml Nebu IH Q12HRT [facility] Carvedilol 12.5 mg 07/26/21 15:00 07/26/21 15:27 Carvedilol 12.5 Mg Tab PO 12.5 mg BID YUN Administration Heparin Sodium (Porcine) 5,000 unit 07/25/21 14:00 07/26/21 15:22 Heparin 5,000 Unit/1 Ml Vial SUB-Q 5,000 unit Q8HR [facility] Administration Hydralazine HCl 10 mg 07/25/21 04:32 07/25/21 17:58 Hydralazine 20 Mg/1 Ml Inj IV 10 mg Q4H PRN Administration Blood Pressure Methylprednisolone Sodium Succinate 60 mg 07/26/21 22:00 Methylprednisolone Sod Succinate 125 Mg/2 Ml Inj IV Q8HR [facility] Morphine Sulfate 2 mg 07/25/21 09:48 Morphine 2 Mg/1 Ml Inj IV Q5MIN PRN Chest Pain unrelieved by NTG Nitroglycerin 0.4 mg 07/25/21 09:31 Nitroglycerin 0.4 Mg Tab Subl SL Q5M PRN Chest Pain Sodium Chloride 10 ml 07/25/21 09:31 Sodium Chloride 0.9% 10 Ml Flush Syringe IV PRN PRN LINE FLUSH Tramadol HCl 50 mg 07/25/21 09:31 Tramadol 50 Mg Tab PO Q6H PRN Pain, Moderate (4-6)
[2021-07-26] MEDS: BUDESONIDE 0.25 MG/2 ML NEBU IH SCH (20:09)
[2021-07-26] MEDS: methylPREDNISolone Sod Succinate 125 MG/2 ML INJ IV SCH (22:12)
[2021-07-27] MEDS: HEPARIN 5,000 UNIT/1 ML VIAL SUB-Q SCH ×3 (05:17→21:02)
[2021-07-27] MEDS: methylPREDNISolone Sod Succinate 125 MG/2 ML INJ IV SCH ×3 (05:17→21:01)
[2021-07-27] MEDS ORDERED: carvediloL 12.5 MG TAB PO SCH (05:23)
[2021-07-27] MEDS ORDERED: carvediloL 25 MG TAB PO SCH ×2 (05:30→08:00)
[2021-07-27] MEDS: BUDESONIDE 0.25 MG/2 ML NEBU IH SCH ×2 (08:02→23:02)
[2021-07-27] MEDS ORDERED: hydroCHLOROthiazide 25 MG TAB PO SCH (10:00)
[2021-07-27] MEDS ORDERED: LISINOPRIL 10 MG TAB PO SCH (10:00)
[2021-07-27] MEDS: hydrALAZINE 20 MG/1 ML INJ IV PRN (10:35)
[2021-07-27] MEDS: ASPIRIN 325 MG TAB PO SCH (10:43)
[2021-07-27] MEDS: carvediloL 25 MG TAB PO SCH ×2 (10:43→19:21)
--- NOTE | 2021-07-27 11:09 | Electrocardiograph Report ---
[facility] Test Date: 2021-07-26 Test Time: 07:34:24 Pat Name: DOTTIE ALFRED Department: Room: A451 1 Gender: M [employer]er Apprentice: BOLA : 1975 Requested By: SAFIA BRANCH Order Number: [id number] Reading MD: Jose Wilkinson Measurements Intervals [place] Rate: 85 P: 78 OK: 148 QRS: 19 QRSD: 91 T: 241 QT: 373 QTc: 445 Interpretive Statements Sinus rhythm Abnormal T, consider ischemia, diffuse leads Compared to ECG 07/25/2021 11:30:13 No significant changes Electronically Signed On 07-27-2021 11:08:53 EST by Jose Wilkinson
--- NOTE | 2021-07-27 12:16 | Consultation ---
History of Present Illness Consult date: 07/27/21 Consult reason: congestive heart failure History of present illness: 46-year old M admitted 2 days ago with chest pain. Chest pain is poorly ankit acterized and non-exertional. Initial workup with a chest x-ray was negative. Cycled troponin measurements were normal. ECG is sinus rhythm with non-specific T wave changes. He was admitted by the primary team and underwent a lexiscan thallium stress test. The lexiscan shows no evidence of ischemia. However findings were suggestive of dilated cardiomyopathy, ejection fraction 33%. A cardiac consultation has been requested for further evaluation of dilated cardiomyopathy. Patient has no prior cardiac history. He reports shortness of breath but he relates this to his asthma and obesity. He denies palpitations. There is no lower extremity edema. Past History Past Medical History: hypertension, other (Asthma,Obesity) Past Surgical History: No surgical history Social history: smoking (Current daily smoker), alcohol abuse Family history: CAD, diabetes (Mother had diabetes mellitus), hypertension (Hypertension also runs in the family) Medications and Allergies Allergies Allergy/AdvReac Type Severity Reaction Status Date / Time No Known Allergies Allergy Unverified 05/09/19 16:15 Home Medications Medication Instructions Recorded Confirmed Last Taken Type Albuterol Sulfate [Proventil Hfa] 1 - 2 puff IH Q4H PRN #1 hfa.aer.ad 05/09/19 07/26/21 Unknown Rx Aspirin 325 mg PO QDAY #30 tablet 07/24/21 07/26/21 07/24/21 Rx amLODIPine 10 mg PO DAILY #30 tab 07/24/21 07/26/21 07/24/21 Rx Active Meds: Active Medications Acetaminophen (Acetaminophen 325 Mg Tab) 650 mg PO Q6H PRN PRN Reason: Pain, Mild (1-3) Albuterol (Albuterol 2.5 Mg/3 Ml Nebu) 2.5 mg IH Q4H PRN PRN Reason: Shortness Of Breath Aspirin (Aspirin 325 Mg Tab) 325 mg PO QDAY [facility] Last Admin: 07/27/21 10:43 Dose: 325 mg Documented by: Budesonide (Budesonide 0.25 Mg/2 Ml Nebu) 0.25 mg IH Q12HRT [facility] Last Admin: 07/27/21 08:02 Dose: Not Given Documented by: Carvedilol (Carvedilol 25 Mg Tab) 25 mg PO BID@0800,1700 [facility] Last Admin: 07/27/21 10:43 Dose: 25 mg Documented by: Heparin Sodium (Porcine) (Heparin 5,000 Unit/1 Ml Vial) 5,000 unit SUB-Q Q8HR [facility] Last Admin: 07/27/21 05:17 Dose: 5,000 unit Documented by: Hydralazine HCl (Hydralazine 20 Mg/1 Ml Inj) 10 mg IV Q4H PRN PRN Reason: Blood Pressure Last Admin: 07/27/21 10:35 Dose: 10 mg Documented by: Hydrochlorothiazide (Hydrochlorothiazide 25 Mg Tab) 25 mg PO DAILY [facility] Last Admin: 07/27/21 10:42 Dose: 25 mg Documented by: Lisinopril (Lisinopril 10 Mg Tab) 10 mg PO QDAY [facility] Last Admin: 07/27/21 10:42 Dose: 10 mg Documented by: Methylprednisolone Sodium Succinate (Methylprednisolone Sod Succinate 125 Mg/2 Ml Inj) 60 mg IV Q8HR [facility] Last Admin: 07/27/21 05:17 Dose: 60 mg Documented by: Nitroglycerin (Nitroglycerin 0.4 Mg Tab Subl) 0.4 mg SL Q5M PRN PRN Reason: Chest Pain Sodium Chloride (Sodium Chloride 0.9% 10 Ml Flush Syringe) 10 ml IV PRN PRN PRN Reason: LINE FLUSH Last Admin: 07/26/21 22:13 Dose: 10 ml Documented by: Tramadol HCl (Tramadol 50 Mg Tab) 50 mg PO Q6H PRN PRN Reason: Pain, Moderate (4-6) Review of Systems Cardiovascular: chest pain, shortness of breath, no palpitations, no edema Physical Examination Vital Signs Pulse Resp Pulse Ox 90 26 H 90 07/24/21 23:20 07/24/21 23:20 07/24/21 23:20 General appearance: no acute distress, obese HEENT: Positive: PERRL Neck: Positive: trachea midline Cardiac: Positive: Reg Rate and Rhythm Lungs: Positive: Decreased Breath Sounds Neuro: Positive: Grossly Intact Extremities: Absent: edema Results 07/25/21 13:27 07/25/21 13:27 Assessment and Plan Chest pain, atypical MPI: shows no evidence of ischemia. However findings were suggestive of dilated cardiomyopathy, ejection fraction 33%. Hypertension, uncontrolled Asthma Obesity Plan: Will get an echocardiogram for LVEF assessment. Continue Carvedilol. Discontinue HCTZ and Lisinopril. Will use Losartan 50 mg for HTN management. Titrate as needed for optimal management.
[2021-07-27] MEDS: LOSARTAN 50 MG TAB PO SCH (14:52)
--- NOTE | 2021-07-27 19:15 | Progress Note ---
Assessment and Plan Assessment and plan: 46-year-old male with known history of asthma, hypertension, obesity and a long history of tobacco abuse presenting to the emergency room today complaining of chest pain. Chest pain was said to be substernal which has been intermittent and has been ongoing for the past few weeks. It started when he was at work and was doing some lifting at work few weeks ago. No known relieving factors. Patient also reports wheezing and difficulty breathing since couple of weeks and using OTC inhaler from [employer]. He does not see doctors since he has no health insurance. He denies any nausea vomiting, no abdominal pain, no headache or dizziness and no diaphoresis. Patient denies any fever or chills. Upon arrival arrival in the emergency room, blood pressure was elevated with systolic in the 180s. Work-up in the emergency room today including EKG and troponin has been negative. Patient is being admitted for chest pain evaluation. (1) Acute recurrent atypical chest pains Current Visit: Yes Status: Acute Plan to address problem: Intermittent chest pains started after lifting heavy items at work few weeks ago. Nontender to palpation. Patient admitted and placed on telemetry Troponins x3 normal. D-dimer normal. Consult placed to cardiology for evaluation. Nuclear stress is reported negative for ischemia, however showed LVEF 33% without wall motion abnormalities. No acute process/CHF reported on chest x-ray. BNP 105 Echocardiogram: Mild to moderate LVH with LV size normal, diastolic dysfunction present, LVEF 50%. Borderline LAE. RA/RV normal. The above findings are consistent with hypertensive cardiomyopathy (2) severe uncontrolled hypertension/noncompliance Current Visit: Yes Status: Acute Plan to address problem: Medical therapy initiated and being optimized Will discharge patient once BP control is acceptable for close outpatient follow-up. (3) asthma exacerbation, ongoing tobacco smoker Patient reports wheezing and dyspnea since weeks. Patient is using only a OTC inhaler from [employer], he does not see doctors since he has no insurance. Placed on nebs and Solu-Medrol. Counseled on quitting tobacco smoking. (4) morbid obesity with BMI of 70 and over, highly suspicious PEEWEE Current Visit: Yes Status: Acute Plan to address problem: Dietary consult requested for evaluation. Lifestyle modification encouraged. He will need a sleep study as the patient (4) DVT prophylaxis Current Visit: Yes Status: Acute Plan to address problem: Patient placed on subcutaneous heparin. (5) Full code status Current Visit: Yes Status: Acute Plan to address problem: Patient is full code. History Interval history: Patient reports breathing better since admitted. No chest pains or palpitations currently. No leg edema. BP remains, being controlled. On nebulizer therapy. Cardiology evaluation in progress. Hospitalist Physical - Constitutional Vitals: Temp Pulse Resp BP Pulse Ox 122.0 F H 106 H 20 150/92 98 07/27/21 15:25 07/27/21 15:25 07/27/21 15:25 07/27/21 15:25 07/27/21 15:25 General appearance: Present: no acute distress, obese - EENT Eyes: Present: PERRL, EOM intact ENT: clear oral mucosa - Neck Neck: Present: supple, other (No JVD) - Respiratory Respiratory: bilateral: diminished, wheezing (No significant wheezes) - Cardiovascular Rhythm: regular - Extremities Extremities: No edema - Abdominal General gastrointestinal: soft, non-tender, other (Obese) - Integumentary Integumentary: Absent: rash - Psychiatric Psychiatric: appropriate mood/affect - Neurologic Neurologic: no focal deficits, moves all extremities HEART Score - HEART Score EKG: Non-specific Age: 45-65 Risk factors: > 3 risk factors or hx of atherosclerotic disease Troponin: Troponin T < 0.010 ng/mL (0.00-0.029) 07/25/21 15:27 Troponin: < normal limit Results - Labs CBC & Chem 7: 07/25/21 13:27 07/25/21 13:27 Labs: Laboratory Last Values WBC 6.2 K/mm3 (4.5-11.0) 07/25/21 13:27 RBC 4.83 M/mm3 (3.65-5.03) 07/25/21 13:27 Hgb 15.5 gm/dl (11.8-15.2) H 07/25/21 13:27 Hct 47.9 % (35.5-45.6) H 07/25/21 13:27 MCV 99 fl (84-94) H 07/25/21 13:27 MCH 32 pg (28-32) 07/25/21 13:27 MCHC 32 % (32-34) 07/25/21 13:27 RDW 13.9 % (13.2-15.2) 07/25/21 13:27 Plt Count 235 K/mm3 (140-440) 07/25/21 13:27 Lymph % (Auto) 37.1 % (13.4-35.0) H 07/25/21 13:27 Rush % (Auto) 13.6 % (0.0-7.3) H 07/25/21 13:27 Eos % (Auto) 2.4 % (0.0-4.3) 07/25/21 13:27 Baso % (Auto) 0.6 % (0.0-1.8) 07/25/21 13:27 Lymph # (Auto) 2.3 K/mm3 (1.2-5.4) 07/25/21 13:27 Rush # (Auto) 0.8 K/mm3 (0.0-0.8) 07/25/21 13:27 Eos # (Auto) 0.1 K/mm3 (0.0-0.4) 07/25/21 13:27 Baso # (Auto) 0.0 K/mm3 (0.0-0.1) 07/25/21 13:27 Seg Neutrophils % 46.3 % (40.0-70.0) 07/25/21 13:27 Seg Neutrophils # 2.9 K/mm3 (1.8-7.7) 07/25/21 13:27 D-Dimer 201.76 ng/mlDDU (0-234) 07/26/21 10:15 Sodium 139 mmol/L (137-145) 07/25/21 13:27 Potassium 4.2 mmol/L (3.6-5.0) 07/25/21 13:27 Chloride 103.1 mmol/L (98-107) 07/25/21 13:27 Carbon Dioxide 26 mmol/L (22-30) 07/25/21 13:27 Anion Gap 14 mmol/L 07/25/21 13:27 BUN 13 mg/dL (9-20) 07/25/21 13:27 Creatinine 0.8 mg/dL (0.8-1.3) 07/25/21 13:27 Estimated GFR > 60 ml/min 07/25/21 13:27 BUN/Creatinine Ratio 16 % 07/25/21 13:27 Glucose 112 mg/dL (75-100) H 07/25/21 13:27 Calcium 9.1 mg/dL (8.4-10.2) 07/25/21 13:27 Troponin T < 0.010 ng/mL (0.00-0.029) 07/25/21 15:27 NT-Pro-B Natriuret Pep 105.5 pg/mL (0-450) 07/26/21 14:23 Hamilton/IV: Voiding Method Toilet Active Medications - Current Medications Current Medications: Generic Name Dose Route Start Last Admin Trade Name Freq PRN Reason Stop Dose Admin Acetaminophen 650 mg 07/25/21 09:31 Acetaminophen 325 Mg Tab PO Q6H PRN Pain, Mild (1-3) Albuterol 2.5 mg 07/25/21 09:36 Albuterol 2.5 Mg/3 Ml Nebu IH Q4H PRN Shortness Of Breath Budesonide 0.25 mg 07/26/21 20:00 07/27/21 08:02 Budesonide 0.25 Mg/2 Ml Nebu IH Not Given Q12HRT [facility] Carvedilol 25 mg 07/27/21 08:00 07/27/21 10:43 Carvedilol 25 Mg Tab PO 25 mg BID@0800,1700 YUN Administration Heparin Sodium (Porcine) 5,000 unit 07/25/21 14:00 07/27/21 14:53 Heparin 5,000 Unit/1 Ml Vial SUB-Q 5,000 unit Q8HR YUN Administration Hydralazine HCl 10 mg 07/25/21 04:32 07/27/21 10:35 Hydralazine 20 Mg/1 Ml Inj IV 10 mg Q4H PRN Administration Blood Pressure Losartan Potassium 50 mg 07/27/21 13:00 07/27/21 14:52 Losartan 50 Mg Tab PO 50 mg QDAY YUN Administration Methylprednisolone Sodium Succinate 60 mg 07/26/21 22:00 07/27/21 14:52 Methylprednisolone Sod Succinate 125 Mg/2 Ml Inj IV 60 mg Q8HR YUN Administration Nitroglycerin 0.4 mg 07/25/21 09:31 Nitroglycerin 0.4 Mg Tab Subl SL Q5M PRN Chest Pain Sodium Chloride 10 ml 07/25/21 09:31 07/26/21 22:13 Sodium Chloride 0.9% 10 Ml Flush Syringe IV 10 ml PRN PRN Administration LINE FLUSH Tramadol HCl 50 mg 07/25/21 09:31 Tramadol 50 Mg Tab PO Q6H PRN Pain, Moderate (4-6)
[2021-07-28] MEDS: methylPREDNISolone Sod Succinate 125 MG/2 ML INJ IV SCH ×2 (05:19→16:36)
[2021-07-28] MEDS: HEPARIN 5,000 UNIT/1 ML VIAL SUB-Q SCH (05:19)
[2021-07-28] MEDS: BUDESONIDE 0.25 MG/2 ML NEBU IH SCH (09:16)
[2021-07-28] MEDS: carvediloL 25 MG TAB PO SCH ×2 (09:47→16:36)
[2021-07-28] MEDS: LOSARTAN 50 MG TAB PO SCH (09:48)
[2021-07-28] MEDS ORDERED: hydroCHLOROthiazide 25 MG TAB PO SCH (10:00)
--- NOTE | 2021-07-28 11:03 | Progress Note ---
Assessment and Plan Shortness of breath MPI this admission shows no evidence of ischemia. However findings were suggestive of dilated cardiomyopathy, ejection fraction 33%. Echocardiogram revealed LV ejection fraction of 50% Essential primary hypertension, uncontrolled Alcohol abuse Asthma Obesity Recommendations: Continue afterload reduction. Advised salt restriction and alcohol abstinence. Patient may go home and follow-up with cardiology as outpatient. Appointment is scheduled for August 02 at 3:20 PM in our [place] office. Subjective Date of service: 07/28/21 Principal diagnosis: Shortness of breath Interval history: Patient is doing well this morning. He denies any chest pain or shortness of breath. No events recorded on telemetry. Objective Vital Signs Temp Pulse Pulse Resp BP BP Pulse Ox 07/28/21 07:32 83 100 07/28/21 04:07 98.0 F 83 16 146/84 94 07/28/21 00:05 97.9 F 86 17 174/109 96 07/27/21 22:00 104 H 104 H 18 98 07/27/21 19:21 104 H 07/27/21 19:18 97.6 F 98 H 16 164/110 98 07/27/21 15:25 122.0 F H 106 H 20 150/92 98 07/27/21 14:52 104 H - Physical Examination HEENT: Positive: PERRL Neck: Positive: trachea midline Cardiac: Positive: Reg Rate and Rhythm Lungs: Positive: Normal Exam Neuro: Positive: Grossly Intact Extremities: Absent: edema
--- NOTE | 2021-07-28 16:41 | Discharge Summary ---
Providers - Providers Date of Admission: 07/26/21 11:00 Date of discharge: 07/28/21 Attending physician: LAYLA STOKES MD 07/25/21 Consult to Cardiac Rehabilitation [CONS] Routine Reason For Exam: Phase I 07/26/21 13:49 Consult to Physician [CONS] Routine Comment: Consulting Provider: LARISA ASTUDILLO Physician Instructions: Reason For Exam: CHF, LVEF 30% Primary care physician: HOT BLASTER Hospitalization Condition: Stable Hospital course: 46-year-old male with known history of asthma, hypertension, obesity and a long history of tobacco smoking but noncompliant with medical therapy due to lacking intentions in the PCP presented to ED complaining of intermittent anterior chest pains which started after lifting something heavy at his work couple of weeks ago. He was also experiencing worsening dyspnea and wheezing since couple of weeks. He is using OTC inhaler from [employer]. BP was noted to be significantly elevated about 200/110. CBC and CMP unremarkable, D-dimer 201, BNP 105. EKG showed NSR, diffuse T wave inversions and poor R progression in chest leads. Troponins x3. Chest x-ray showed no acute process or signs of CHF. He was noted to have asthma exacerbation and at high risk for PEEWEE. Medical therapy initiated for control of hypertension and asthma exacerbation. Patient was evaluated by cardiology and underwent nuclear stress test which was negative for ischemia but showed LVEF of 33%. Echocardiogram: Mild to moderate LVH with LV size normal, diastolic dysfunction present, LVEF 50%. Borderline LAE. RA/RV normal. These findings are consistent with hypertensive cardiomyopathy. Patient did not have volume overload. Asthma in the BP improved without discharge. He did not have any chest pain during the hospital stay. He was ambulatory. Associate Media Director, Dr. Astudillo cleared him for discharge with a follow- up appointment with him on 08/02/2021. Patient was counseled on quitting tobacco use, dieting, weight loss and compliance with his medications and the follow-up doctors visits. Discharge meds: Prednisone taper pack Singulair 10 mg daily Albuterol inhaler Carvedilol 25 mg twice daily HCTZ 25 mg daily Lisinopril 40 mg daily Discharge diagnoses: Severe hypertension, untreated Hypertensive cardiomyopathy with LVH, diastolic dysfunction and LVEF 50% Bronchial asthma since childhood likely with COPD from tobacco smoking Obesity, morbid, BMI 42 Recurrent anterior chest pains since lifting heavy object, likely noncardiac Nuclear stress test negative for ischemia Disposition: HOME / SELF CARE / HOMELESS Final Discharge Diagnosis (Prints w/discharge instructions): Severe hypertension, untreated. Hypertensive cardiomyopathy with LVH, diastolic dysfunction and LVEF 50%. Bronchial asthma since childhood likely with COPD from tobacco smoking. Obesity, morbid, BMI 42. Recurrent anterior chest pains since lifting heavy object, likely noncardiac. Nuclear stress test negative for ischemia Time spent for discharge: 35 minutes Core Measure Documentation - Palliative Care Palliative Care/ Comfort Measures: Not Applicable - Core Measures Any of the following diagnoses?: none Exam - Constitutional Vitals: Temp Pulse Resp BP Pulse Ox 98.3 F 76 20 167/102 95 07/28/21 12:17 07/28/21 12:17 07/28/21 12:17 07/28/21 12:17 07/28/21 12:17 General appearance: Present: no acute distress, obese - EENT Eyes: Present: PERRL ENT: clear oral mucosa - Neck Neck: Present: supple, other (No JVD) - Respiratory Respiratory effort: normal Respiratory: bilateral: diminished (Coarse breath sounds, minimal wheezes) - Cardiovascular Rhythm: regular - Extremities Extremities: No edema - Abdominal General gastrointestinal: Present: soft, non-tender, other (Obese) - Integumentary Integumentary: Absent: rash - Neurologic Neurologic: no focal deficits, moves all extremities Plan Activity: advance as tolerated Diet: low fat, low salt Additional Instructions: Get your blood pressure well controlled, 130/70. Do not use tobacco products or drink alcohol excessively Follow up with: PRIMARY MD CANDIS [Primary Care Provider] - 7 Days LARISA ASTUDILLO MD [Staff Physician] - 08/02/21 Forms: Work/School Release Form Prescriptions: carvediloL [Coreg] 25 mg PO BID@0800,1700 #60 tablet hydroCHLOROthiazide [HCTZ] 25 mg PO QDAY #30 tablet Prednisone [predniSONE 5 mg (6-Day Pack, 21 Tabs)] 5 mg PO .TAPER #1 tab.ds.pk Albuterol Sulfate [Proventil Hfa] 1 - 2 puff IH Q4H PRN #1 hfa.aer.ad PRN Reason: Dyspnea Montelukast [Singulair] 10 mg PO QPM #30 tablet lisinopriL [Zestril TAB] 40 mg PO QDAY #30 tablet
[2021-07-28 17:36] VITALS: BP 113/35
== END 2021-07-28 18:28 | disposition home or self-care (01) | DRG 202 ==
LOC: ED 00:47 → 4A 02:37 → OBSVTOIN 07-26 11:00
PROVIDERS: ADMIT Internal Medicine Geriatric Medicine; ATTEND Internal Medicine
DX: J45.901 Unspecified asthma with (acute) exacerbation (principal); I43 Cardiomyopathy in diseases classified elsewhere; Z68.41 Body mass index [BMI] 40.0-44.9, adult; E66.01 Morbid (severe) obesity due to excess calories; F17.200 Nicotine dependence, unspecified, uncomplicated; Z79.82 Long term (current) use of aspirin; Z83.3 Family history of diabetes mellitus; Z82.49 Family history of ischemic heart disease and other diseases of the circulatory system; Z91.19 Patient's noncompliance with other medical treatment and regimen; R07.89 Other chest pain; I11.9 Hypertensive heart disease without heart failure
CPT/HCPCS: 36415; 71046; 78452; 80048; 83880; 84484; 85025; 85379; 93005; 93017; 93306; 94640; G0378; A9502; J0360; J1644; J2785; J2930